=== PATIENT | female | born 1995 ===

== ENCOUNTER 2023-12-18 12:26 | Emergency (ER) | payer OTHER, SELFPAY ==
--- NOTE | ~2023-12-18 | CT_ITS ---
EXAMINATION: CT SOFT TISSUE NECK WITH CONTRAST CLINICAL INFORMATION: Neck swelling and tonsillar enlargement. COMPARISON: There are no prior studies available for comparison. TECHNIQUE: Following the intravenous administration of 60 mL of Omnipaque 350 intravenous contrast, helical imaging was performed in the axial plane with generation of coronal and sagittal reformatted images. This CT examination was performed using dose optimization techniques as appropriate, variously including the following: *Automated exposure control *Adjustment of mA and/or kV according to patient size (this includes techniques or standardized protocols for targeted exams where dose is matched to indication/reason for exam; i.e. extremities or head) *Use of iterative reconstruction technique DLP: 437 mGy-cm FINDINGS: There is a 2.1 cm left level IIA/IIB lymph node. A 1.9 cm right level IIA/IIB lymph node is also demonstrated. In addition, there are small lymph nodes at multiple levels in the neck bilaterally. There are also multiple small supraclavicular and axillary lymph nodes. There is mild fullness of the palatine tonsils bilaterally without discrete abscess. However, there are areas of low-attenuation in the palatine tonsils bilaterally which may be consistent with evolving tonsillitis changes. The parotid glands are homogeneous in attenuation. The submandibular glands are normal. The laryngeal structures are normal. The parapharyngeal fat is preserved. The carotid sheath vasculature opacifies normally. No extra mucosal soft tissue mass or fluid collection is seen. No retropharyngeal fluid collection is seen. The thyroid gland is normal. The superior mediastinum is unremarkable. The lung apices are clear. The mastoid air cells and visualized portions of the paranasal sinuses are well-aerated. The temporomandibular joints are normal. No periapical disease is identified. There are no acute osseous abnormalities. The imaged portions of the brain parenchyma are unremarkable. CT/CT soft tissue neck w IV con IMPRESSION: 1. There is mild fullness of the palatine tonsils bilaterally without discrete abscess. There are areas of low-attenuation in the palatine tonsils bilaterally which may be consistent with evolving tonsillitis. 2. There are moderately prominent lymph nodes in the neck bilaterally as described above, which are likely reactive. There are also multiple small lymph nodes at multiple other levels in the neck, and in the supraclavicular and axillary regions.
[2023-12-18 12:30] VITALS: BP 133/80; PULSE 91; RESP 18; TEMP 36.6; O2SAT 99; BMI 25.4
--- NOTE | 2023-12-18 12:30 | ED_ITS ---
HPI - General Adult General Chief complaint: Upper Respiratory Symptoms Stated complaint: sore throat, difficulty breathing Time Seen by Provider: 12/18/23 12:45 Source: patient and RN notes reviewed Mode of arrival: ambulatory Limitations: no limitations History of Present Illness ED Provider: Nemo Avery PA-C HPI narrative: This is a 28-year-old female who presents emergency department complaints of sore throat x 3 days. Patient states that over the last several days she has had pain in her throat. She went to her primary care physician in was concern for possible throat infection however tested negative for strep. She is taken 3 doses of Augmentin without any relief. She states that she has had some difficulty swallowing as well as right ear pain. She reports some shortness of breath secondary to throat pain and swelling. She has been able to swallow. She has been taking Tylenol for her symptoms with minimal relief. No other complaints or concerns at this time. MD complaint: Sore throat Related Data Previous Rx's ?Medication ?Instructions ?Recorded acetaminophen 325 mg tablet 325 mg PO Q4H PRN fever or pain 12/18/23 (Tylenol) #30 tabs ibuprofen 600 mg tablet 600 mg PO Q6H PRN pain #30 tabs 12/18/23 prednisone 50 mg tablet 50 mg PO DAILY 6 days #6 tabs 12/18/23 Allergies Allergy/AdvReac Type Severity Reaction Status Date / Time No Known Allergies Allergy Verified 12/18/23 12:32 Review of Systems 2 Review of Systems: Yes all other systems are reviewed and are negative Constitutional: Constitutional: Reports as per [facility] Social History Social History Advance Directives: No Advance Directives Information Provided: Yes Do you have a plan to hurt others: No Plan Physical Exam ED Vital Signs: Vital Signs - 24 hr 12/18/23 12:30 12/18/23 14:01 12/18/23 15:36 Temperature 97.9 F 98.8 F Pulse Rate 91 82 Respiratory Rate 18 18 18 Blood Pressure 133/80 119/79 Pulse Oximetry 99 99 Oxygen Delivery Method Room Air 12/18/23 17:10 Temperature 98.8 F Pulse Rate 82 Respiratory Rate 18 Blood Pressure 119/79 Pulse Oximetry 99 Oxygen Delivery Method BMI result Body Mass Index 25.4 Const General: cooperative, comfortable and no acute distress Orientation/consciousness: patient oriented x3 Limitations: no limitations HENMT Other: Bilateral tonsils are edematous, 2+ bilaterally, uvula is midline. Positive exudates noted bilaterally. Speaking in full sentences, no trismus, drooling or dysphonia. Head: Yes normal to inspection, Yes normocephalic and Yes atraumatic Ears: hearing grossly normal bilaterally General nose exam: Normal external nose present Face and sinus: Yes normal facial exam Eyes General: appearance normal, both eyes and all related structures Eyelids: Yes eyelids normal Conjunctivae: conjunctivae normal Sclerae: sclerae normal Pupils: Equal, round and reactive pupils present EOM: EOMs intact bilaterally Neck Neck: Yes normal visual inspection, Yes full ROM and Yes no lymphadenopathy Lymphatic: no lymphadenopathy noted Chest Chest palpation & inspection: normal inspection of the chest Resp Effort & Inspection: normal respiratory effort and able to speak in complete sentences Auscultation: clear to auscultation bilaterally, no crackles, no rales, no rhonchi and no wheezes Cardio Rate: regular rate Rhythm: regular rhythm Heart sounds: S1 normal heart sound present and S2 normal heart sound present GI Other: Abdomen is soft, nontender, nondistended Inspection: Yes normal to inspection Skin General skin exam: no rashes or lesions noted Trauma: no lacerations or abrasions Wounds: no wounds Neuro General: patient oriented x3 and moves all extremities Cranial nerves: Yes Equal, round and reactive pupils present Extrem General: Yes normal to inspection Right upper extremity: normal to inspection Left upper extremity: normal to inspection Right lower extremity: normal to inspection Left lower extremity: normal to inspection Course Course Course Narrative: This is a Rapid Medical Examination (RME) performed by Sarkis Mccartney PA-C in triage. Full HPI, ROS, assessment and treatment plan per primary provider in the Main ED. 28 yo female here for eval of sore throat xdays. Saw PCP yesterday for sore throat. she tested negative for strep however cultures were sent out. she also tested negative for covid/flu/rsv. she was started on amoxicillin and has had 3 doses of this. today reports worsening sore throat, difficulty breathing, difficulty swallowing, and right ear pain- pcp advised to come to the ED. bilateral tonsillar edema, erythematous. uvula midline. controlling secretions and speaking in complete sentences. Plan: strep and viral swabs. Reevaluation(s) Reevaluation #1: Labs returned, she does have elevation in her AST and ALT as well as alk phos, consistent with monovirus. Patient medicated with IV Solu-Medrol as well as morphine. Reevaluation #2: Patient re-evaluated, feeling slightly improved after receiving morphine and IV fluids, and Solu-Medrol. CT scan revealing mild fullness in the palatine tonsils bilaterally without discrete abscess. moderately prominent lymph nodes in the neck bilaterally. She is drinking and eating in the department. Discussed strict return precautions. Discharge with 6 day course of prednisone. Discussed return precautions. Stable for discharge. Time: 16:30 Medications Administered Discontinued Medications Generic Name Dose Route Start Last Admin Trade Name Freq PRN Reason Stop Dose Admin Sodium Chloride 1,000 mls @ 999 mls/hr 12/18/23 13:04 12/18/23 14:20 Ns IV 12/18/23 14:04 Infused .Q1H1M ONE Infusion Iohexol 100 ml 12/18/23 14:02 12/18/23 14:02 Iohexol 350 Mg/Ml 100 Ml Infus..Btl IV 12/18/23 14:03 60 ml ONCE ONE Administration Methylprednisolone Sodium Succinate 125 mg 12/18/23 13:48 12/18/23 14:01 Methylprednisolone Sod Succ 125 Mg/2 Ml Vial IVPUSH 12/18/23 13:49 125 mg ONCE ONE Administration Morphine Sulfate 4 mg 12/18/23 13:51 12/18/23 14:01 Morphine Sulfate 4 Mg/Ml Cartridge IVPUSH 12/18/23 13:52 4 mg ONCE ONE Administration Protocol Medical Decision Making Medical Decision Making MDM Narrative: This is a 28-year-old female, with no known medical problems, who presents emergency department with complaints of sore throat for the last several days. She was seen by her PCP yesterday and was started on Augmentin. She is taken 3 doses without any relief. She states that she has had difficulty following and some difficulty breathing. On arrival, vital signs within normal limits. She is speaking in full sentences under no acute respiratory distress. Oropharynx is patent however bilateral tonsillar hypertrophy with exudates noted bilaterally. Uvula is slightly deviated to the right. Given this finding, will obtain labs, as well as CT scan to rule out COMPENSATION/BENEFITS SPECIALIST. Plan: Labs, IV Solu-Medrol, CTA of the neck Differential Diagnosis Differential Diagnoses: The differential diagnosis associated with the presentation includes COMPENSATION/BENEFITS SPECIALIST, tonsillitis, uvulitis, strep pharyngitis, mass Admission/Observation Consideration of admission/observation: Escalation of care including admission/observation considered Escalation of care including admission/observation considered however given workup today not warranted at this time. Lab Data MDM Lab Attestation statement: I reviewed the patient's lab results. No leukocytosis, stable H&H, elevation AST, ALT, and alk phos. Larue screen positive. 12/18/23 13:14 12/18/23 13:14 Labs: Lab Results 12/18/23 12/18/23 Range/Units 12:39 13:14 WBC 8.3 (4.8-10.8) X10*3/uL RBC 4.38 (4.20-5.50) X10*6/uL Hgb 13.4 (12.0-16.0) g/dl Hct 38.2 (37.0-47.0) % MCV 87.2 (80.0-98.0) fL MCH 30.6 (27.0-33.0) pg MCHC 35.1 H (31.0-35.0) g/dl RDW 12.5 (11.0-16.0) % Plt Count 180 (160-400) X10*3/uL MPV 9.8 (9.4-12.3) fL Immature Gran % (Auto) Cancelled Neut % (Auto) Cancelled Lymph % (Auto) Cancelled Larue % (Auto) Cancelled Eos % (Auto) Cancelled Baso % (Auto) Cancelled Lymph # (Auto) Cancelled Larue # (Auto) Cancelled Eos # (Auto) Cancelled Baso # (Auto) Cancelled Abs Immat Gran (auto) Cancelled Absolute Neuts (auto) Cancelled Absolute Nucleated RBC 0.000 (0.0-0.012) X10*3/uL Nucleated RBC % (auto) 0.0 (0.0-0.2) /100WBC Neutrophils % (Manual) 45 (45-73) % Band Neutrophils % 0 L (3-5) % Lymphocytes % (Manual) 36 (20-40) % Atypical Lymphs % (Man) 14 H (0-6) % Monocytes % (Manual) 5 (2-11) % Abs Neuts (Manual) 3.7 (2.0-8.3) X10*3/uL Lymphocytes # (Manual) 3.0 (1.2-4.9) X10*3/uL Atyp Lymphs # (Manual) 1.2 x10*3/uL Monocytes # (Manual) 0.4 (0.1-1.2) X10*3/uL Smudge Cells PRESENT Platelet Estimate NORMAL (NORMAL) Plt Morphology Comment NORMAL RBC Morphology NORMAL Smear Tech's Comments MANUAL DIFF Sodium 140 (135-145) mmol/L Potassium 3.8 (3.3-5.1) mmol/L Chloride 107 (96-108) mmol/L Carbon Dioxide 26 (22-29) mmol/L Anion Gap 11 L (12-20) BUN 6 L (9-16) mg/dL Creatinine 0.78 (0.5-1.4) mg/dL Estim Creat Clear Calc 100.1 Estimated GFR > 60 Random Glucose 90 (60-115) mg/dL Calcium 9.3 (8.4-10.2) mg/dL Total Bilirubin 0.4 (0.0-1.0) mg/dL Direct Bilirubin 0.2 (0.0-0.5) mg/dL AST 94 H (5-31) U/L ALT 184 H (0-31) U/L Alkaline Phosphatase 137 H (39-117) U/L Total Protein 7.6 (6.5-8.0) g/dL Albumin 3.8 (3.5-5.0) g/dL Beta HCG, Quant < 2 mIU/mL Monoscreen Positive A (Negative) Influenza Type A (PCR) NEGATIVE (Negative) Influenza Type B (PCR) NEGATIVE (Negative) RSV RNA Qual (PCR) NEGATIVE (Negative) SARS-CoV-2 RNA (RT-PCR) NEGATIVE (Negative) S. pyogenes GrpA SYED Negative (Negative) Radiology Impression Discussion of test interpretation with radiology: I have reviewed the radiologist's reading. Radiologist Impression: CT/CT soft tissue neck w IV con IMPRESSION: 1. There is mild fullness of the palatine tonsils bilaterally without discrete abscess. There are areas of low-attenuation in the palatine tonsils bilaterally which may be consistent with evolving tonsillitis. 2. There are moderately prominent lymph nodes in the neck bilaterally as described above, which are likely reactive. There are also multiple small lymph nodes at multiple other levels in the neck, and in the supraclavicular and axillary regions. Dictated By: RADHA BRUNNER MD Discharge Plan Discharge Clinical Impression: Mononucleosis Patient Disposition: Home, Self-Care Instructions: Mononucleosis (ED) Additional Instructions: You were seen in the emergency department due to a sore throat. You tested negative for COVID, flu, RSV. You tested positive for mono. Mononucleosis is a virus. This does take several weeks for you to feel better. You had elevated liver enzymes which is consistent with this virus. You are not . Your CT scan does not show an abscess, and is reassuring. It is very important for you to stay hydrated. Tea with honey popsicles and foods can help alleviate your symptoms sooner. Saltwater gargles can also be beneficial. Discontinue taking your antibiotic. This will only make her symptoms worse. Take prescribed prednisone as directed. Finish the entire course. Follow-up with your primary care physician this visit. If any new or worsening symptoms occur including but not limited to inability to swallow, worsening swelling, shortness of breath, chest pain, please return for re-evaluation. Prescriptions: New prednisone 50 mg tablet 50 mg PO DAILY 6 Days Qty: 6 0RF ibuprofen 600 mg tablet 600 mg PO Q6H PRN (Reason: pain) Qty: 30 0RF acetaminophen [Tylenol] 325 mg tablet 325 mg PO Q4H PRN (Reason: fever or pain) Qty: 30 0RF Interventions: ED Discharge Assessment Last Done: 12/18/23 17:10 Discharge Date/Time: 12/18/23 17:11 Print Language: [place]
[2023-12-18 12:55] LABS: IDNOW Serial# 08D9AD1C; Strep A Nucleic Acid Negative (Negative)
[2023-12-18] MEDS: 0.9 % Sodium Chloride 1,000 ML 999 ML IV (13:17)
[2023-12-18 13:20] LABS: Hematocrit 38.2 % (37.0-47.0); Hemoglobin 13.4 g/dl (12.0-16.0); Mean Corpuscular HGB Conc 35.1 g/dl (31.0-35.0); Mean Corpuscular Hemoglobin 30.6 pg (27.0-33.0); Mean Corpuscular Volume 87.2 fL (80.0-98.0); Mean Platelet Volume 9.8 fL (9.4-12.3); Platelet Count 180 X10*3/uL (160-400); Red Blood Count 4.38 X10*6/uL (4.20-5.50); Red Cell Distribution Width 12.5 % (11.0-16.0); White Blood Count 8.3 X10*3/uL (4.8-10.8)
[2023-12-18 13:24] LABS: Influenza A PCR NEGATIVE (Negative); Influenza B PCR NEGATIVE (Negative); Resp Syncy Virus RNA Qual PCR NEGATIVE (Negative); SARS COV2 PCR INHOUSE NEGATIVE (Negative)
[2023-12-18 13:36] LABS: Monotest Positive (Negative)
[2023-12-18 13:39] LABS: SLIDE REVIEW MANUAL DIFF
[2023-12-18 13:40] LABS: Alanine Aminotransferase 184 U/L (0-31); Albumin Level 3.8 g/dL (3.5-5.0); Alkaline Phosphatase 137 U/L (39-117); Anion Gap 11 (12-20); Aspartate Amino Transferase 94 U/L (5-31); Bilirubin Direct 0.2 mg/dL (0.0-0.5); Bilirubin Total 0.4 mg/dL (0.0-1.0); Blood Urea Nitrogen 6 mg/dL (9-16); Calcium 9.3 mg/dL (8.4-10.2); Carbon Dioxide 26 mmol/L (22-29); Chloride 107 mmol/L (96-108); Creatinine Clr Calc Pharmacy 100.1; Estimated Glomerular Filt Rate > 60; Glucose Random 90 mg/dL (60-115); HCG Quantitative < 2 mIU/mL; Potassium 3.8 mmol/L (3.3-5.1); Sodium 140 mmol/L (135-145); Total Protein 7.6 g/dL (6.5-8.0)
[2023-12-18 13:58] LABS: Atypical Lymph Absolute Manual 1.2 x10*3/uL; Atypical Lymphs Percent Manual 14 % (0-6); Lymphocytes Percent Manual 36 % (20-40); Monocytes Absolute Manual 0.4 X10*3/uL (0.1-1.2); Monocytes Percent Manual 5 % (2-11); Neutrophils Percent Manual 45 % (45-73)
[2023-12-18 13:59] LABS: Platelet Estimate NORMAL (NORMAL); Platelet Morphology Comment NORMAL; RBC Morphology NORMAL
[2023-12-18 14:00] LABS: Smudge Cells PRESENT
[2023-12-18 14:01] VITALS: RESP 18
[2023-12-18 14:01] LABS: Band Neutrophils Percent 0 % (3-5); Neutrophils Absolute Manual 3.7 X10*3/uL (2.0-8.3)
[2023-12-18] MEDS: methylPREDNISolone Sod Succ 125 MG/2 ML VIAL IVPUSH (14:01)
[2023-12-18] MEDS: Morphine Sulfate 4 MG/ML CARTRIDGE IVPUSH (14:01)
[2023-12-18] MEDS: iohexoL 350 MG/ML 100 ML INFUS..BTL IV (14:02)
[2023-12-18 15:36] VITALS: BP 119/79; PULSE 82; RESP 18; TEMP 37.1; O2SAT 99
[2023-12-18 17:10] VITALS: BP 119/79; PULSE 82; RESP 18; TEMP 37.1; O2SAT 99
== END 2023-12-18 17:11 | disposition home or self-care (01) ==
PROVIDERS: Physician Assistant Medical; Emergency Provider Emergency Medicine; PCP Physician Assistant Medical
DX: B27.90 Infectious mononucleosis, unspecified without complication (principal); J02.9 Acute pharyngitis, unspecified; Z03.818 Encounter for observation for suspected exposure to other biological agents ruled out; R06.02 Shortness of breath
CPT/HCPCS: 0241U; 36415; 70491; 80048; 80076; 84702; 85007; 85027; 86308; 87651; 96361; 96374; 96375; 99283; 99284; J2270; J2919; Q9967